=== PATIENT | male | born 1965 | race Hispanic/Latino ===

== ENCOUNTER 2017-07-08 17:21 | Inpatient (IN) | payer SELFPAY ==
[2017-07-08] MEDS ORDERED: Ondansetron HCl/PF 4 MG/2 ML Vial IV PRN (20:14)
[2017-07-08] MEDS ORDERED: Acetaminophen 325 MG TAB PO PRN (20:14)
[2017-07-08] MEDS ORDERED: traMADol HCl 50 MG TAB PO PRN (20:14)
[2017-07-08] MEDS ORDERED: TETANUS AND DIPHTHERIA TOX/PF 0.5 ML DISP.SYRIN IM SCH (20:15)
[2017-07-08] MEDS: HYDROcodone/Acetaminophen 5/325 mg Tablet PO PRN (20:29)
[2017-07-08] MEDS ORDERED: Adacel (T-DAP) 0.5 ML VIAL IM ONE (22:00)
[2017-07-08] MEDS: CEFAZOLIN/Water 2 GM/20 ML SYRINGE SLOW IVP SCH (22:06)
[2017-07-08] MEDS: Fentanyl 100 MCG/2 ML VIAL SLOW IVP PRN (22:43)
[2017-07-08 22:47] VITALS: BMI 26.6
[2017-07-09] MEDS: Fentanyl 100 MCG/2 ML VIAL SLOW IVP PRN ×3 (03:37→19:57)
[2017-07-09] MEDS: HYDROcodone/Acetaminophen 5/325 mg Tablet PO PRN ×2 (04:21→22:44)
[2017-07-09] MEDS: CEFAZOLIN/Water 2 GM/20 ML SYRINGE SLOW IVP SCH ×3 (06:39→22:16)
--- NOTE | 2017-07-09 08:39 | HP ---
CHIEF COMPLAINT: Left hand laceration. HISTORY OF PRESENT ILLNESS: Mr. Hernandez is a 51-year-old male who injured his left hand with a chain saw yesterday. He sustained a deep laceration into the second webspace involving the index finger. He also cut his lip. His lip was repaired in the emergency department. He has been admitted to the hospital overnight for antibiotics, pain control and to prepare for hand surgery. He has been comfo rtable. No new concerns. No other problems. PAST MEDICAL HISTORY: He denies active medical problems. PAST SURGICAL HISTORY: No recent surgeries. ALLERGIES: No known drug allergies. SOCIAL HISTORY: The patient drinks occasional alcohol, no smoking or drug use. He does construction work. PHYSICAL EXAMINATION: VITAL SIGNS: Temperature is 98.8, pulse is 92, respiratory 18, 96% on room air. GENERAL: He is alert and oriented, no apparent distress, sitting upright. RESPIRATORY: Breathing comfortably. ABDOMEN: Soft, nontender, nondistended. MUSCULOSKELETAL: The patient's left hand dressing was removed. He has a complex deep laceration thr ough the second webspace extending over the palmar surface of the hand near the index finger into the first webspace. He is unable to flex the index finger. He does report feeling normal sensation in the tip of the finger, both medial and laterally. He is able to flex the thumb. Two second capillar y refill. No active arterial bleeding. IMPRESSION: Left hand laceration with index flexor tendon laceration. PLAN: At this point, I have discussed the patient's case with Dr. Colin. He will assume the [facility] care today. He will need to go to the operating room for exploration of the wound, flexor tend on repair as well as other indicated procedures such as nerve repair. He will remain n.p.o. He has had adequate pain control. He has had antibiotics. All questions have been answered.
[2017-07-09] MEDS ORDERED: FLU VACC QS2017-18 36 mo. & older 0.5 ML SYRINGE IM ONE (09:00)
[2017-07-09] MEDS ORDERED: Bacitracin Zinc Ointment 30 gm TUBE ONE (11:24)
[2017-07-09] MEDS ORDERED: Bupivacaine 0.5% 10 ML VIAL ONE (11:24)
[2017-07-09] MEDS ORDERED: Sodium Chloride 0.9% 10 ML ONE (11:24)
[2017-07-09] MEDS ORDERED: Midazolam HCl 2 mg/2 ml Vial ONE (11:26)
[2017-07-09] MEDS ORDERED: Fentanyl 100 MCG/2 ML VIAL ONE ×5 (11:26→18:34)
[2017-07-09] MEDS ORDERED: Sodium Chloride 0.9% 20 ML ONE (11:47)
[2017-07-09] MEDS ORDERED: Gentamicin 80 MG/2 ML VIAL ONE (12:17)
[2017-07-09] MEDS ORDERED: Heparin 10,000 UNITS/1 ML VIAL ONE (12:46)
[2017-07-09] MEDS ORDERED: Hetastarch 6% 500 ML 500 ML ONE (12:46)
[2017-07-09] MEDS ORDERED: Heparin 10,000 UNITS/ 10 ML VIAL ONE (16:39)
[2017-07-09] MEDS ORDERED: Dexamethasone 20 MG/5 ML VIAL ONE (16:39)
[2017-07-09] MEDS ORDERED: Lidocaine 1% PF 5 ML VIAL ONE (16:39)
[2017-07-09] MEDS ORDERED: PROPOFOL 200 MG/20 ML VIAL ONE (16:39)
[2017-07-09] MEDS ORDERED: Ondansetron HCl/PF 4 MG/2 ML Vial ONE (16:39)
[2017-07-09] MEDS ORDERED: Ketorolac Tromethamine 30 MG/ML VIAL IVP PRN (17:44)
[2017-07-09] MEDS ORDERED: oxyCODONE/Acetaminophen 5 mg/325 mg Tablet PO PRN ×2 (19:08)
[2017-07-09] MEDS ORDERED: Morphine 5 MG/ML SYRINGE SLOW IVP PRN (19:09)
[2017-07-09] MEDS ORDERED: Meperidine HCl/PF 25 MG/ML VIAL IM PRN (19:10)
[2017-07-09] MEDS ORDERED: Promethazine HCl 25 MG/ML VIAL IM PRN (19:11)
[2017-07-09] MEDS: Gentamicin Sulfate 80 MG in Premix Bag 1 BAG IVPB SCH (20:43)
[2017-07-09] MEDS: Penicillin G Potassium 3 MILL.UNITS in Sodium Chloride 0.9% 100 ML IVPB SCH (22:16)
[2017-07-09] MEDS: Albuterol Sulfate 2.5 mg/3 ml Neb NEB SCH (22:34)
--- NOTE | 2017-07-09 22:49 | RAD ---
INTRAOPERATIVE VIEWS LEFT HAND CLINICAL HISTORY: Intraoperative evaluation. FINDINGS: Two views of a portion of the left hand provided with overlying radiopaque device. Detail is limited. Correlate with intraoperative findings. IMPRESSION: Intraoperative imaging for operative purposes. POS: SILVIA
[2017-07-09] MEDS: Vancomycin HCl 1 GM in Premix Bag 1 BAG IVPB SCH (23:41)
[2017-07-10] MEDS: Penicillin G Potassium 3 MILL.UNITS in Sodium Chloride 0.9% 100 ML IVPB SCH ×5 (01:16→17:23)
[2017-07-10] MEDS: Hetastarch 6% 500 ML 500 ML IVPB SCH ×2 (01:17→16:22)
[2017-07-10] MEDS: Albuterol Sulfate 2.5 mg/3 ml Neb NEB SCH ×5 (02:48→19:10)
[2017-07-10] MEDS: Gentamicin Sulfate 80 MG in Premix Bag 1 BAG IVPB SCH ×2 (04:01→12:09)
[2017-07-10] MEDS: CEFAZOLIN/Water 2 GM/20 ML SYRINGE SLOW IVP SCH ×3 (05:41→21:28)
[2017-07-10 06:00] LABS: #Lymphocytes 0.9 thou/uL (1.20-3.40); #Monocytes 0.6 thou/uL (0.11-0.59); #Neutrophils 8.9 thou/uL (1.40-6.50); %Basophils 0.1 % (0.0-1.0); %Eosinophils 0.1 % (0.0-10.0); %Lymphocytes 8.8 % (21.0-51.0); %Monocytes 5.8 % (0.0-10.0); %Neutrophils 85.2 % (42.0-75.0); Hemoglobin 11.4 g/dL (14.0-18.0); Mean Corpuscular HGB CONC 31.6 g/dL (32.0-36.0); Mean Corpuscular Hemoglobin 27.8 pg (27.0-31.0); Mean Corpuscular Volume 87.9 fl (80.0-94.0); Mean Platelet Volume 6.7 fL (7.4-10.4); Platelet Count 327 thou/uL (130-400); RBC Distribution Width 11.4 % (11.5-14.5); Red Blood Cell (RBC) Count 4.09 mill/uL (4.70-6.10); White Blood Cell (WBC) Count 10.5 thou/uL (4.8-10.8)
[2017-07-10] MEDS: Vancomycin HCl 1 GM in Premix Bag 1 BAG IVPB SCH ×2 (08:21→21:16)
[2017-07-10] MEDS: HYDROcodone/Acetaminophen 5/325 mg Tablet PO PRN (14:44)
--- NOTE | 2017-07-10 17:17 | OP ---
DATE OF PROCEDURE: 07/09/2017 SURGEON: Don Colin M.D. ANESTHESIA: General LMA technique augmented by axillary block. PREOPERATIVE DIAGNOSES: Multiple complex wound secondary to chainsaw, palmar left hand, palmar thumb , and entire palm and index finger. FINDINGS: 1. Flexor digitorum profundus and superficialis laceration complete. 2. A1 dontae to pull the lacerations. 3. Digital artery x2, digital nerve x2, index finger laceration. 4. Mild contamination of wounds. 5. Digital nerve radial and digital ulnar lacerations. It was at the thumb and index finger. A sma ll 2 cm x 5 mm opening of superficial laceration over the long finger. POSTOPERATIVE DIAGNOSES: Multiple complex wound secondary to chainsaw, palmar left hand, palmar thum b, and entire palm and index finger with minimal contamination and also an open fracture, which requi red debridement with a curette, but this has not been a problem for stability, so we did not undergo open reduction and internal fixation. PROCEDURES: As follows: 1. Wound debridement, left index finger. 2. Wound debridement, left palm. 3. Wound debridement, left thumb. 4. Wound debridement, left long finger. 5. Open treatment, proximal phalanx fracture. 6. Open treatment of material-associated open fracture. 7. C-arm supervision for 2.5 hours. 8. Flexor digitorum superficialis repair, index finger. 9. Flexor digitorum profundus repair, left index finger. 10. Thumb intrinsic tendon repair. 11. Index finger digital artery microscopic repair. 12. Index finger radial digital nerve repair, microscopic. 13. Index finger ulnar digital nerve repair, microscopic. 14. Left index finger 15 cm wound debridement with closure. 15. Left long finger 3 cm wound closure with debridement. COMPLICATIONS: None. ESTIMATED BLOOD LOSS: Total 150 mL. TOURNIQUET TIME: 2 hours and 5 minutes. INDICATIONS: The patient had a chainsaw contact in his hand approximately 0330 hours, 07/08/2017, s ought medical attention and was evacuated to the hospital for higher level of care. By the time I ev aluated him earlier today, date of surgery, 07/09/2017, it had already been many hours and the need f or debridement was urgent, and we felt we could do debridement, because we also had expertise and equ ipment at the facility to handle these type of injuries. C-arm was brought to the field, soon we prepped and draped. Patient had tourniquet inflated and exsa nguinated at 250 mmHg pressure. At this point, we then began an extensive wound debridement using ex cision technique, tenotomy scissors, [place] blade, DeBandree, Rehan, and hemostats to remove dirt partic les and ground-in dirt. Once we performed debridement of the inner portion, we could then visualize the lacerations, but we then debrided the circumference of the skin to allow for heal of what was rem aining. Once this was done, debridement was complete, we could see that the patient had a complete l aceration of the flexure digitorum superficialis index finger through the laceration with partial ner ve lacerations to the thumb, both the radial and ulnar digital nerve, and multiple thumb intrinsic mu scle lacerations as well. For this reason, once debridement was completed including some necrotic mu scle in the palm, we then irrigated with 5 liters of normal saline and Pulsavac pressure. Once this was complete, the patient did have a debridement of the palm and thumb and index finger completed in all layers. We then visualized the proximal phalanx fracture was deep, because of all lacerations in the index finger were down to and include the bone. This was a large pressure fashion curette , tenotomy scissors, [place] blade, and Pulsavac irrigation. We finished this, and now we completed t he open treatment of the proximal phalanx fracture along with its debridement. We now prepared all t he flexure tendons for repair, used a Giovanny-Robbins technique for A-strand suture for the primary tendons at this level, and used a modified Silva for the flexure digitorum superficialis. Once they were b oth repaired, that was normally seen was recovered. The patient had excellent circulation in his digit when the tourniquet was deflated and we now comple mata debridement and repair of his thumb intrinsic muscles using a #1 Ethibond in a [id number] in terrupted pattern. It was at this point, however, that we could see no circulation would be restored and so we abandoned areas and began to dissect out the arteries and nerve. Once this was comp lete, it was evident the patient had lost substance in the arteries and nerves at different sites and it was even questioned or so. We then completed irrigation, completed debridement as describe d above, and then finally repaired under magnification the flexor digitorum superficialis using the t echnique listed above, which is a modified Silva followed by a running 5-0 suture. Then, the same technique was used to repair the flexor digitorum superficialis, but both lay out with same technique that we used, the flexor digitorum superficialis was now abandoned, because now we needed a 6 or 8-s trand suture so we used a Giovanny-Robbins core suture with a running 6-0 Prolene. Now that all the tendons were secured and index finger into appropriate flexion 30 degrees DIP and near 90 at the PIP wi thout splitting. The patient now had the index finger digital artery identified, we obtained some clamps, refreshed th e repair to good tendon and began this repair. First at the index finger, we used the microscope onc e again to repair the digital artery by first dissecting 1 mm on each end, using a Norman to clear o ut the artery and obtained pulsatile flow, placed a clamp over using the back wall first technique re pair with 9-0 Nurolon, the arterial injury. This had excellent flow. We gave a bolus of heparin fol lowed by dextran. We then had finished debridement of wound edges, tourniquet was now deflated for the second time; thi s, however, has not been reinflated. We then closed the 15 cm wound with interrupted 4-0 nylon sutur es without complication or undue tension in the wound site. We completed the initial dontae repair n ow that the flexor tendons were repaired and moving.
[2017-07-10] MEDS: Clindamycin 150 MG CAP PO SCH (21:16)
[2017-07-11] MEDS: HYDROcodone/Acetaminophen 5/325 mg Tablet PO PRN ×2 (06:07→12:21)
[2017-07-11] MEDS ORDERED: Aspirin 325 mg Enteric Coated Tablet PO SCH (09:00)
[2017-07-11] MEDS: Clindamycin 150 MG CAP PO SCH (09:13)
[2017-07-11 12:02] VITALS: BP 124/80; TEMP 98.5
--- NOTE | 2017-07-13 15:18 | DIS ---
DATE OF ADMISSION: 07/08/2017 DATE OF DISCHARGE: 07/11/2017 ADMITTING PHYSICIAN: Dr. Colin with [facility]uma [facility]. ADMISSION DIAGNOSES: 1. Left index finger flexor digitorum profundus and superficialis laceration complete. 2. A1-dontae laceration. 3. Digital artery and digital nerve lacerations x2, index finger laceration as well. 4. Mild wound contamination. 5. Digital nerve radial and digital also ulnar nerve lacerations. DISCHARGE DIAGNOSES: 1. Left index finger flexor digitorum profundus and superficialis laceration complete. 2. A1-dontae laceration. 3. Digital artery and digital nerve lacerations x2, index finger laceration as well. 4. Mild wound contamination. 5. Digital nerve radial and digital also ulnar nerve lacerations. HOSPITAL COURSE: Patient admitted after having a saw to the hand, longitudinal instead of transverse , making for an interesting injury pattern while at work. He within 12 hours was taken to the operat ing room with debridement of all wounds, where we then did remove debridement of all involved digits, left index finger, left palm, left thumb, and then closed to the left long finger. We then did open treatment and proximal phalanx fracture with open treatment of material-associated with fracture. T he C-arm was used for 2 hours and then in the middle of the flexor digitorum superficialis repair as well as the flexor digitorum profundus repair using Giovanny/Rosendo suture technique in same suture. Next, patient underwent thumb intrinsic tendon repair, which was a problem; left index finger digital peggy ry microscopic repair; left index finger radial nerve repair, microscopic; left index finger ulnar di gital nerve repair, microscopic; and left index, long finger wound debridements and closures 15 and 3 cm respectively. These procedures, the patient with a history of mild contamination and industrial environment, we had the wound loosely approximated without trouble, but then it was felt that he should need IV antibiot ics and then he was placed immediately on , given 100 unit bolus and then 50 mL per hour with a plan to wean him off this if he had good neurovascular status in 12-18 hours. He did slowly wean off his medicines, placed him on aspirin, did not undergo dressing change. The digit was pink, had appr opriate flexion, and had one-second refill. He left the hospital without evidence of anesthetic, ope rative, or care complications.
== END 2017-07-11 14:23 | disposition home or self-care (01) | DRG 513 ==
LOC: INTOOBSV 19:58 → SURG A 19:58 → OBSVTOIN 19:58
PROVIDERS: ADMIT Orthopaedic Surgery; ATTEND Orthopaedic Surgery
PROC: 0KBD0ZZ Excision of Left Hand Muscle, Open Approach (ICD-10-PCS; principal; 2017-07-09)
PROC: 0LM80ZZ Reattachment of Left Hand Tendon, Open Approach (ICD-10-PCS; 2017-07-09)
PROC: 03QF0ZZ Repair Left Hand Artery, Open Approach (ICD-10-PCS; 2017-07-09)
PROC: 01Q60ZZ Repair Radial Nerve, Open Approach (ICD-10-PCS; 2017-07-09)
PROC: 01Q40ZZ Repair Ulnar Nerve, Open Approach (ICD-10-PCS; 2017-07-09)
DX: S66.121A Laceration of flexor muscle, fascia and tendon of left index finger at wrist and hand level, initial encounter (principal); S62.611B Displaced fracture of proximal phalanx of left index finger, initial encounter for open fracture; S01.511A Laceration without foreign body of lip, initial encounter; S61.412A Laceration without foreign body of left hand, initial encounter; W31.2XXA Contact with powered woodworking and forming machines, initial encounter; Y93.H3 Activity, building and construction
CPT/HCPCS: 36415; 76001; 85025; 90715; 94640; A4216; J1100; J1580; J1644; J2001; J2250; J2270; J2405; J2540; J2704; J3010; J3370; J3490; J7050; J7611